=== PATIENT | female | born 1955 | race Caucasian/White ===

== ENCOUNTER → 2016-07-03 | Outpatient (REF) | LOC: WSOH 09:29 | DX: Z02.89 Encounter for other administrative examinations (principal) ==

== ENCOUNTER → 2016-07-13 | Outpatient (REF) | LOC: WSOH 10:27 | DX: Z02.89 Encounter for other administrative examinations (principal) ==

== ENCOUNTER 2019-03-03 06:49 | Day surgery (SDC) | payer BC ==
[~2019-03-03] VITALS: Ht 160.1 cm; Wt 76.0 kg
[2019-03-03] VITALS (12 sets, daily range): BP systolic 98–114; BP diastolic 66–75; PULSE 56–70; TEMP 97.9–98.3
[2019-03-03 07:47] LABS: HEMATOCRIT 42.7 % (37.0-47.0); HEMOGLOBIN 13.4 g/dl (12.5-16.0); MEAN CELL VOLUME 83 fl (80.0-100.0); MEAN CORPUSCULAR HEMOGLOBIN 26 pg (27.0-31.0); MEAN CORPUSCULAR HGB CONC 31 g/dl (33.0-37.0); MEAN PLATELET VOLUME 10.4 fl (7.4-10.4); PLATELET COUNT 321 K/mm3 (130-400); RED BLOOD COUNT 5.12 M/mm3 (4.10-5.30); REDCELL DISTRIBUTION WIDTH-CV 14.1 % (11.5-14.5)
[2019-03-03 07:52] LABS: INR 0.9 (0.8-3.0); PROTHROMBIN TIME 9.9 SECONDS (9.7-12.8)
[2019-03-03 07:57] LABS: CALCIUM 9.1 mg/dL (8.4-10.2); CREATININE, serum 0.9 (0.52-1.25); POTASSIUM 3.8 mmol/L (3.4-5.0)
[2019-03-03] MEDS ORDERED: NORVASC2.5 MG PO (08:32)
[2019-03-03] MEDS ORDERED: ASMANEX HF200 MCG/Ac IH (08:33)
[2019-03-03] MEDS ORDERED: ASPIRIN 81M81 MG/TA2 PO (08:33)
[2019-03-03] MEDS ORDERED: BEVESPI AEROS10.7 GM IH (08:35)
[2019-03-03] MEDS ORDERED: LASIX 40MG TABL40 MG PO (08:36)
[2019-03-03] MEDS ORDERED: EMBEDA ER 20-01 EACH PO (08:36)
[2019-03-03] MEDS ORDERED: KEPPRA 500MG500 MG PO (08:37)
[2019-03-03] MEDS ORDERED: SYNTHROID 0.10.15 MG PO ×2 (08:39→08:40)
[2019-03-03] MEDS ORDERED: NITROSTAT0.4 MG/TAB SL (08:40)
[2019-03-03] MEDS ORDERED: PRILOSEC 20MG20 MG PO (08:41)
[2019-03-03] MEDS ORDERED: PERCOCET 325 MG1 TA2 PO (08:42)
[2019-03-03] MEDS ORDERED: ZOLOFT 50MG50 MG PO (08:43)
[2019-03-03] MEDS ORDERED: K-DUR20 MEQ PO (08:43)
[2019-03-03] MEDS ORDERED: VITAMIN D 1001000 IU PO (08:44)
--- NOTE | 2019-03-03 09:25 | NUR ---
SEE TERRY FOR ALL MEDIATION ADMINISTATION TIMES AND INTRA/POST SEDATION ASSESSMENT.
--- NOTE | 2019-03-03 10:15 | NUR ---
Pt returned to [facility] 12 per bed s/p heart cath. Pt resting well, daughter at bedside.
--- NOTE | 2019-03-03 14:37 | NUR ---
Pt has ambulated, voided and chavo PO intake s n/v. PIV removed with catheter intact.
--- NOTE | 2019-03-03 14:55 | NUR ---
Pt discharged per w/c by nurse with daughter.
== END 2019-03-03 14:56 | disposition home or self-care (01) ==
LOC: COL.CAR 06:49
PROVIDERS: Internal Medicine Cardiovascular Disease
DX: R06.02 Shortness of breath (principal); R94.39 Abnormal result of other cardiovascular function study; G40.909 Epilepsy, unspecified, not intractable, without status epilepticus; J43.9 Emphysema, unspecified; Z79.51 Long term (current) use of inhaled steroids; I08.1 Rheumatic disorders of both mitral and tricuspid valves; Z90.89 Acquired absence of other organs; Z90.49 Acquired absence of other specified parts of digestive tract; Z88.5 Allergy status to narcotic agent; Z88.8 Allergy status to other drugs, medicaments and biological substances; Z79.891 Long term (current) use of opiate analgesic; Z79.82 Long term (current) use of aspirin; Z87.891 Personal history of nicotine dependence; Z82.49 Family history of ischemic heart disease and other diseases of the circulatory system; Z82.5 Family history of asthma and other chronic lower respiratory diseases
CPT/HCPCS: C1760; C1894; J1644; J2250; J3010

== ENCOUNTER → 2023-10-29 | Outpatient (CLI) | payer MEDICARE ==
[~2023-10-29] MED LIST: ASMANEX HF200 MCG/Ac IH; ASPIRIN 81M81 MG/TA2 PO; Albuterol 0.083% Neb Soln 2.5 MG/3 ML UD IH ONE; BEVESPI AEROS10.7 GM IH; EMBEDA ER 20-01 EACH PO; K-DUR20 MEQ PO; KEPPRA 500MG500 MG PO; LASIX 40MG TABL40 MG PO; NITROSTAT0.4 MG/TAB SL; NORVASC2.5 MG PO; PERCOCET 325 MG1 TA2 PO; PRILOSEC 20MG20 MG PO; SYNTHROID 0.10.15 MG PO; VITAMIN D 1001000 IU PO; ZOLOFT 50MG50 MG PO
== END ==
LOC: COL.CARD 09:40
DX: R06.02 Shortness of breath (principal); Z87.891 Personal history of nicotine dependence

== ENCOUNTER → 2023-10-30 | Outpatient (CLI) | payer MEDICARE ==
[~2023-10-30] MED LIST changes: +Methacholine Vial A (Clear Label Base-Cntrl) IH ONE; +Methacholine Vial B (Red Label) 0.0625 MG/ML 3 ML VIAL.NEB IH ONE; +Methacholine Vial C (Orange Label) 0.25 MG/ML 3 ML VIAL.NEB IH ONE; +Methacholine Vial D (Yellow Label) 1 MG/ML 3 ML VIAL.NEB IH ONE; +Methacholine Vial E (Green Label) 4 MG/ML 3 ML VIAL.NEB IH ONE; +Methacholine Vial F (Blue Label) 16 MG/ML 3 ML VIAL.NEB IH ONE
== END ==
LOC: COL.CARD 10:00
DX: R06.02 Shortness of breath (principal)
CPT/HCPCS: J7674